=== PATIENT | male | born 1955 | race Caucasian/White ===

== ENCOUNTER 2016-04-07 15:00 | Observation (INO) | payer MEDICARE, SELFPAY ==
[~2016-04-07] VITALS: Ht 175.3 cm; Wt 146.7 kg
[2016-04-07 15:29] LABS: BASO % 0.2 % (0.2-1.2); EOS # 0.1 10_X3_uL (0.0-0.5); EOS % 2.1 % (0.8-7.0); GRAN # 2.3 10_X3_uL (1.8-5.4); GRAN % 49.4 % (34.0-67.9); HEMATOCRIT 38.4 % (40-51); HEMOGLOBIN 13.6 g/dL (13.7-17.5); LYMPH # 1.9 10_X3_uL (1.3-3.6); LYMPH % 40.6 % (21.8-53.1); MEAN CORPUSCULAR HEMOGLOBIN 29.6 pg (27.0-33.0); MEAN CORPUSCULAR HGB CONC 35.4 g/dL (32.0-36.0); MEAN CORPUSCULAR VOLUME 83.7 fL (79-92); MEAN PLATELET VOLUME 9.8 fl (7.5-11.5); MONO # 0.4 10_X3_uL (0.3-0.8); MONO % 7.7 % (5.3-12.2); PLATELET COUNT 181 x10_3/uL (163-337); RED BLOOD COUNT 4.59 x10_6/uL (4.6-6.1); RED CELL DISTRIBUTION WIDTH 13.5 % (11.6-14.4); WHITE BLOOD COUNT 4.7 x10_3/uL (4.2-9.1)
[2016-04-07 15:43] LABS: ALBUMIN 4.2 gm/dL (3.4-5.0); ALKALINE PHOSPHATASE 71 U/L (50-136); ALT/SGPT 55 U/L (7.53-40.17); AST/SGOT 35 U/L (6.66-35.34); BILIRUBIN,TOTAL 0.26 mg/dL (0.0-1.0); BLOOD UREA NITROGEN 16 mg/dL (7-18); CALCIUM 9.2 mg/dL (8.7-10.7); CARBON DIOXIDE 27 mmol/L (21-32); CREATINE KINASE 206 U/L (35-232); CREATININE 0.9 mg/dL (0.6-1.3); GLUCOSE,RANDOM 94 mg/dL (70-99); POTASSIUM 3.9 mmol/L (3.5-5.1); SODIUM 141 mmol/L (136-145); TOTAL PROTEIN 6.4 gm/dL (6.4-8.2)
[2016-04-07 21:34] LABS: PARTIAL THROMBOPLASTIN TIME 23.5 SECONDS (21.3-29.3); PROTHROMBIN TIME (PATIENT) 10.2 SECONDS (9.9-11.1)
[2016-04-07 21:36] LABS: CKMB 2.8 ng/ml (0.0-5.0)
[2016-04-07 21:40] LABS: TROP-I < 0.30 NG/ML (0.00-0.30)
[2016-04-08 03:33] LABS: CKMB 2.3 ng/ml (0.0-5.0)
[2016-04-08 03:35] LABS: ALBUMIN 3.8 gm/dL (3.4-5.0); ALKALINE PHOSPHATASE 48 U/L (50-136); ALT/SGPT 48 U/L (7.53-40.17); AST/SGOT 30 U/L (6.66-35.34); BILIRUBIN,TOTAL 0.45 mg/dL (0.0-1.0); BLOOD UREA NITROGEN 15 mg/dL (7-18); CALCIUM 8.6 mg/dL (8.7-10.7); CARBON DIOXIDE 23 mmol/L (21-32); CREATININE 0.8 mg/dL (0.6-1.3); GLUCOSE,RANDOM 118 mg/dL (70-99); POTASSIUM 3.9 mmol/L (3.5-5.1); SODIUM 140 mmol/L (136-145); TOTAL PROTEIN 5.7 gm/dL (6.4-8.2); TROP-I < 0.30 NG/ML (0.00-0.30)
[2016-04-08 08:54] LABS: CKMB 2.5 ng/ml (0.0-5.0)
[2016-04-08 08:59] LABS: TROP-I < 0.30 NG/ML (0.00-0.30)
== END 2016-04-08 17:05 | disposition home or self-care (01) ==
LOC: ER 15:00 → MS 16:24
PROVIDERS: Internal Medicine; ADMIT Family Medicine
DX: R07.89 Other chest pain (principal); R10.816 Epigastric abdominal tenderness; E66.9 Obesity, unspecified; K21.9 Gastro-esophageal reflux disease without esophagitis; E11.9 Type 2 diabetes mellitus without complications; I10 Essential (primary) hypertension; R06.02 Shortness of breath; M10.9 Gout, unspecified; E78.5 Hyperlipidemia, unspecified; J44.9 Chronic obstructive pulmonary disease, unspecified; Z85.820 Personal history of malignant melanoma of skin; Z87.891 Personal history of nicotine dependence; Z82.49 Family history of ischemic heart disease and other diseases of the circulatory system; Z80.9 Family history of malignant neoplasm, unspecified; Z79.82 Long term (current) use of aspirin; Z79.899 Other long term (current) drug therapy; Z88.8 Allergy status to other drugs, medicaments and biological substances; Z68.42 Body mass index [BMI] 45.0-49.9, adult
CPT/HCPCS: 36415; 71010; 80053; 80061; 82550; 82553; 82962; 83036; 85025; 85610; 85730; 93005; 93041; 94640; 96372; 99070; 99284; 99285-25; G0378